=== PATIENT | female | born 1990 | race Caucasian/White ===

== ENCOUNTER 2020-09-03 14:02 | Inpatient (IN) | payer BC, OTHER ==
[~2020-09-03] VITALS: Ht 170.2 cm; Wt 127.5 kg
[~2020-09-03 14:02] MED LIST: IBUPROFEN600 MG PO
[2020-09-03 16:28] LABS: BUN/CREATININE RATIO 15 (0-10)
[2020-09-03 16:42] LABS: HEMOGLOBIN 11.1 gm/dl (12.3-15.3); RED BLOOD COUNT 4.08 M/UL (4.00-5.10); WHITE BLOOD COUNT 7.1 K/UL (4.5-11.0)
[2020-09-03] MEDS ORDERED: PRENATAL VITAM1 EAC6 PO (16:51)
[2020-09-03] MEDS ORDERED: IRON325 M1 PO (16:51)
[2020-09-03] MEDS ORDERED: VALTREX 500 MG500 MG PO (16:52)
[2020-09-04 05:18] LABS: HEMOGLOBIN 10.2 gm/dl (12.3-15.3)
[2020-09-05] MEDS ORDERED: DOCUSATE SODIU100 MG PO (14:35)
[2020-09-05] MEDS ORDERED: IBUPROFEN600 MG PO (14:35)
== END 2020-09-05 15:03 | disposition home or self-care (01) | DRG 806 ==
LOC: GENOP 14:02 → OB 14:51
PROVIDERS: ADMIT Obstetrics & Gynecology
PROC: 10E0XZZ Delivery of Products of Conception, External Approach (ICD-10-PCS; principal; 2020-09-03)
PROC: 10907ZC Drainage of Amniotic Fluid, Therapeutic from Products of Conception, Via Natural or Artificial Opening (ICD-10-PCS; 2020-09-03)
PROC: 3E0234Z Introduction of Serum, Toxoid and Vaccine into Muscle, Percutaneous Approach (ICD-10-PCS; 2020-09-03)
DX: O14.94 Unspecified pre-eclampsia, complicating childbirth (principal); O98.52 Other viral diseases complicating childbirth; Z37.0 Single live birth; O99.834 Other infection carrier state complicating childbirth; O99.824 Streptococcus B carrier state complicating childbirth; Z3A.38 38 weeks gestation of pregnancy; O75.89 Other specified complications of labor and delivery; B00.9 Herpesviral infection, unspecified; O99.02 Anemia complicating childbirth; D64.9 Anemia, unspecified; Z82.49 Family history of ischemic heart disease and other diseases of the circulatory system; O13.4 Gestational [pregnancy-induced] hypertension without significant proteinuria, complicating childbirth; Z20.828 Contact with and (suspected) exposure to other viral communicable diseases; Z23 Encounter for immunization
CPT/HCPCS: 36415; 51702; 80053; 81001; 82570; 83615; 84156; 84550; 85014; 85018; 85025; 90686; 90715; J2210; J3010; J7120; U0002